=== PATIENT | female | born 1945 | race Caucasian/White ===

== ENCOUNTER 2018-09-21 08:18 | Emergency (ER) | payer MEDICARE ==
[~2018-09-21] VITALS: Ht 167.6 cm; Wt 68.0 kg
--- NOTE | ~2018-09-21 | EKG ---
[place], [place] ELECTROCARDIOGRAM REPORT NAME: SCOTT METZGER UNIT #: [id number] ROOM: DOCTOR: EPIPHANY DRAFT REPORT BIRTHDATE: [birth year] [facility] Test Date: 2018-09-21 Test Time: 08:51:31 Pat Name: SCOTT METZGER Department: Room: Gender: F Attending Psychiatrist: Mallory Berkowitz : 1945 Requested By: JAMES ROMANO Order Number: [id number] Reading MD: Andry Graf MD Measurements Intervals [place] Rate: 60 P: [place]: QRS: 72 QRSD: 113 T: 59 QT: 430 QTc: 430 Interpretive Statements Sinus rhythm Borderline intraventricular conduction delay No previous ECG available for comparison Electronically Signed On 09-21-2018 16:31:23 PST by Andry Graf MD CM:EKGRPT:ELECTROCARDIOGRAM REPORT [id number] JAMES SANTIAGO DRAFT REPORT JAMES ROMANO DO
[~2018-09-21 08:18] MED LIST: B12,B-12,B 12500 MC1 PO; BAYER ASPIRIN C81 MG PO; BIOTIN5 MG PO; CALTRATE 600600 MG PO; CENTRUM1 TAB PO; CEPHALEXIN500 M1 PO; D-BIOTIN 500 M500 ML; KEY-E400 IU PO; LISINOPRIL10 MG PO; LOVASTATIN20 MG PO; SUPER EPA 2002000 MG PO; TOPROL XL50 M1 PO; VITAMIN B121000 MCG PO; VITAMIN C500 M4 PO; [UNRECOGNIZED DRUG - CODE] PO
[2018-09-21 09:02] LABS: BASO % 0.2 % (0.0-1.0); EOS # 0.1 10*3/uL (0.0-0.4); EOS % 0.6 % (1.0-4.0); HEMATOCRIT 38.9 % (37.0-47.0); HEMOGLOBIN 13.3 g/dl (12.0-16.0); LYMPH # 1.4 10*3/uL (1.3-4.4); LYMPH % 12.3 % (27.0-41.0); MEAN CELL VOLUME 87.2 fl (81.0-99.0); MEAN CORPUSCULAR HGB 29.8 pg (27.0-31.0); MEAN CORPUSCULAR HGB CONC 34.2 g/dl (33.0-37.0); MEAN PLATELET VOLUME 9.6 fl (9.6-12.3); MONO # 0.8 10*3/uL (0.1-1.0); MONO % 6.6 % (3.0-9.0); NEUT # 9.1 10*3/uL (2.3-7.9); NEUT % 79.7 % (47.0-73.0); PLATELET COUNT AUTOMATED 273 10*3/uL (130-400); RED BLOOD COUNT 4.46 10*6/uL (4.10-5.10); RED CELL DISTRI WIDTH 12.6 % (0-14.5); WHITE BLOOD COUNT 11.4 10*3/uL (4.8-10.8)
[2018-09-21 09:12] LABS: ACT PARTIAL THROMBO TIME 22.5 SECONDS (20.8-31.5); INTERNATIONAL NORM RATIO 0.9 (2.0-3.5)
[2018-09-21 09:17] LABS: ALBUMIN 3.5 gm/dl (3.1-4.5); ALKALINE PHOSPHATASE 94 U/L (45-117); BUN 19 mg/dl (7-24); CHLORIDE 102 mmol/L (98-107); CREATININE 1.18 mg/dL (0.55-1.02); LIPASE 207 U/L (73-393); POTASSIUM 3.9 mmol/L (3.5-5.1); SGOT/AST 15 IU/L (3-35); SGPT/ALT 25 U/L (12-78); SODIUM 136 mmol/L (136-145); TROPONIN I < 0.015 ng/ml (<0.045)
== END 2018-09-21 10:45 | disposition home or self-care (01) ==
LOC: ED 08:18
PROVIDERS: Emergency Medicine
DX: S90.32XA Contusion of left foot, initial encounter (principal); M25.572 Pain in left ankle and joints of left foot; Z88.6 Allergy status to analgesic agent; Z79.899 Other long term (current) drug therapy; Z79.1 Long term (current) use of non-steroidal anti-inflammatories (NSAID); W10.8XXA Fall (on) (from) other stairs and steps, initial encounter; Y93.89 Activity, other specified; Y92.89 Other specified places as the place of occurrence of the external cause; Y99.8 Other external cause status

== ENCOUNTER 2019-07-04 12:11 | Emergency (ER) | payer MEDICARE ==
[~2019-07-04] VITALS: Ht 165.1 cm; Wt 65.8 kg
[2019-07-04] MEDS ORDERED: TYLENOL325 M1 PO (13:53)
== END 2019-07-04 14:00 | disposition home or self-care (01) ==
LOC: ED 12:11
DX: M25.551 Pain in right hip (principal); I10 Essential (primary) hypertension; E78.5 Hyperlipidemia, unspecified; M13.851 Other specified arthritis, right hip; Z88.6 Allergy status to analgesic agent; Z79.899 Other long term (current) drug therapy; Z96.651 Presence of right artificial knee joint